=== PATIENT | female | born 2000 | race Caucasian/White ===

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

== ENCOUNTER → 2023-04-03 | Outpatient (CLI) | payer OTHER, SELFPAY ==
[2023-04-05 13:08] LABS: Chlamydia By Nucleic Acid AMP Negative (Negative); Gonococcus By Nucleic Acid AMP Negative (Negative)
[2023-04-08 18:35] LABS: HPV Reflexed? NOT INDICATED
== END | disposition home or self-care (01) ==
LOC: LABSPEC 11:22
PROVIDERS: Referring Provider Nurse Practitioner Women's Health; Visit Provider Nurse Practitioner Women's Health
DX: Z12.4 Encounter for screening for malignant neoplasm of cervix (principal); Z11.3 Encounter for screening for infections with a predominantly sexual mode of transmission
CPT/HCPCS: 87491; 87591; 88175; G0145

== ENCOUNTER 2023-07-01 11:54 | Emergency (ER) | payer OTHER, SELFPAY ==
[2023-07-01 11:54] VITALS: BP 122/81; PULSE 100; RESP 16; TEMP 36.2; O2SAT 100; BMI 21.7
[2023-07-01 12:29] LABS: Absolute Lymphocyte Count 1.47 X10^3/uL (0.83-4.51); Absolute Neutrophil Count 5.3 X10^3/uL (2.0-7.7); Basophil# 0.04 X10^3/uL; Basophil% 0.5 % (0-1); Eosinophil# 0.22 X10^3/uL; Eosinophils% 2.8 % (0-5); Hematocrit 44.2 % (37-47); Hemoglobin 14.6 g/dL (12.0-15.0); Lymphocyte # 1.47 X10^3/ul (0.83-4.51); Lymphocyte % 18.7 % (19-41); Mean Corpuscular Hgb 30.7 pg (27.0-32.0); Mean Corpuscular Volume 93.1 fL (81-99); Mean Platelet Vol. 11.2 fl (6.2-12.0); Monocyte# 0.86 X10^3/uL; Monocyte% 10.9 % (0-10); NRBC Flagged by Analyzer 0 % (0-5); Neutrophil # 5.26 X10^3/uL (2.7-7.7); Neutrophil % 66.7 % (47-70); Platelet Count 257 K/mm3 (150-450); RBC Distribution Width CV 12.7 % (11.6-14.6); Red Blood Count 4.75 M/mm3 (4.2-5.4); White Blood Count 7.9 K/mm3 (4.4-11.0)
[2023-07-01 12:41] LABS: Internal QC Validated? YES +Cl - CLEAR BKGD; Pregnancy, Serum, hCG Quali. NEGATIVE Negative
[2023-07-01 12:45] LABS: Anion Gap 8 (5-15); BUN 8 mg/dL (7-18); BUN/Creat Ratio 11.6 RATIO (10-20); Chloride 105 mmol/L (98-107); Creatinine, Serum 0.69 mg/dL (0.55-1.02); EST Glomerular Filtration Rate 113 mL/min (>60); Est Glom Filt Rate - Afr Amer 136 mL/min (>60); Estimated Creatinine Clearance 105.79 ml/min; Glucose 86 mg/dL (74-106); Potassium 4.2 mmol/L (3.5-5.1); Sodium Level 137 mmol/L (136-145)
--- NOTE | 2023-07-01 13:10 | EX.ED.DYSGE1 ---
HPI <CASEY Alicea - Last Filed: 07/01/23 15:56> History of Present Illness Chief Complaint: Abscess Narrative Narrative: Patient presenting today with concerns for a left-sided peritonsillar abscess. She has a history of this happening in April of this year and she had to be admitted to the hospital for I&D. She reports that she has had throat pain and intermittent chills since this Saturday. She saw her PCP this morning who encouraged her to come here for evaluation. She denies any chronic health conditions. She reports that she is able to eat and drink without difficulty. PFSH <CASEY Alicea - Last Filed: 07/01/23 15:56> [facility] Medical History Tonsillar abscess Home Medications levonorgestrel-ethinyl estradiol 0.1 mg-20 mcg tablet (Aviane) 1 tab PO QDAY active pills only for continuous cycling #84 tabs 04/03/23 [Rx Last Taken Unknown] amoxicillin 875 mg-potassium clavulanate 125 mg tablet 1 tab PO BID #20 tabs 07/01/23 [Rx Last Taken Unknown] amoxicillin 875 mg-potassium clavulanate 125 mg tablet 1 tab PO Q12H #20 tabs 07/01/23 [Rx Last Taken Unknown] Allergy/AdvReac Type Severity Reaction Status Date / Time minocycline Allergy Mild hives Verified 07/01/23 11:56 Family History Uncle Cancer Grandmother Breast cancer Surgical History H/O wisdom tooth extraction Social History household members: family housing: house Smoking Status: Never smoker alcohol intake: never substance use type: does not use caffeine: Yes what type of physical activity do you participate in: weight training and other details: softball, soccer frequency: daily seatbelt use: always additional social history: student - [employer] <CASEY Alicea - Last Filed: 07/01/23 15:56> ROS ED Constitutional Constitutional ED: Reports chills; Denies fever(s) ENT ENT ED: Reports sore throat Cardiovascular Cardiovascular: Denies chest pain Respiratory/Chest Respiratory/Chest: Denies cough or dyspnea Gastrointestinal Gastrointestinal: Denies abdominal pain, nausea or vomiting Musculoskeletal Musculoskeletal: Denies arthralgias or myalgias Integumentary Denies rash Neurologic Neurologic: Denies weakness EXAM <CASEY Alicea - Last Filed: 07/01/23 15:56> Physical Exam Const Vital Signs: 07/01/23 11:54 07/01/23 14:02 Temperature 97.1 F L Temperature Source Temporal Pulse Rate 100 68 Respiratory Rate 16 14 Blood Pressure 122/81 H Blood Pressure Mean 94 Pulse Ox 100 Oxygen Delivery Method Room Air Positive well nourished, well developed and no apparent distress General Appearance ED: well developed HEENT Reports normocephalic and head/scalp atraumatic HEENT Narrative: Left-sided soft palate swelling, uvula deviated towards the right, no trismus or drooling, tolerating secretions, no dysphonia Mouth ED: Yes moist mucous membranes normal Eyes PERRL and EOMs intact bilaterally Neck full ROM and supple Chest Wall inspection of chest normal Resp normal respiratory effort and clear to auscultation bilaterally Cardio regular rate and regular rhythm GI soft to palpation, non-tender, non-distended and no masses Back/Spine normal ROM and normal to inspection Extremity normal to inspection and full ROM Neuro oriented x3, CN's II-XII intact bilaterally, moves all extremities, no focal motor deficits and no sensory deficits noted Sensorium / Orientation: awake and alert Psych mental status grossly normal and thought process normal Skin no rashes or lesions noted and no wounds <Dr. Rip Vallejo MD - Last Filed: 07/01/23 16:51> Physical Exam Const Vital Signs: 07/01/23 11:54 07/01/23 14:02 Temperature 97.1 F L Temperature Source Temporal Pulse Rate 100 68 Respiratory Rate 16 14 Blood Pressure 122/81 H Blood Pressure Mean 94 Pulse Ox 100 Oxygen Delivery Method Room Air MDM <CASEY Alicea - Last Filed: 07/01/23 15:56> [facility] Narrative Medical decision making narrative: Presenting today with concerns for a peritonsillar abscess. She has had throat pain since Saturday and does have a history of peritonsillar abscess in April of this year. She does have left-sided soft palate swelling with uvular deviation towards the right. She will be given a dose of Unasyn. Labs are unremarkable. Abscess was drained by the attending ED physician. Patient tolerated procedure well. She will be given an ENT referral and is to follow-up in 2 days. She will be started on Augmentin and has been instructed to do salt water gargles. She will be given a school excuse. She will be discharged home in stable condition and her and mom are comfortable with plan. She has been given return instructions. Lab Data Attestation: I reviewed the patient's lab results. Labs: Laboratory Results - last 24 hr 07/01/23 12:05 WBC 7.9 RBC 4.75 Hgb 14.6 Hct 44.2 MCV 93.1 MCH 30.7 MCHC 33.0 RDW Std Deviation 44.0 H RDW Coeff of Ihsan 12.7 Plt Count 257 MPV 11.2 Immature Gran % (Auto) 0.400 Neut % (Auto) 66.7 Lymph % (Auto) 18.7 L Webster % (Auto) 10.9 H Eos % (Auto) 2.8 Baso % (Auto) 0.5 Absolute Neuts (auto) 5.3 Absolute Lymphs (auto) 1.47 Nucleated RBC % 0 Sodium 137 Potassium 4.2 Chloride 105 Carbon Dioxide 24.0 Anion Gap 8 BUN 8 Creatinine 0.69 Estim Creat Clear Calc 105.79 Est GFR (MDRD) Af Amer 136 Est GFR (MDRD) Non-Af 113 BUN/Creatinine Ratio 11.6 Glucose 86 Calcium 9.0 Serum , Qual NEGATIVE <Dr. Rip Vallejo MD - Last Filed: 07/01/23 16:51> [facility] Narrative Medical decision making narrative: Presenting today with concerns for a peritonsillar abscess. She has had throat pain since Saturday and does have a history of peritonsillar abscess in April of this year. She does have left-sided soft palate swelling with uvular deviation towards the right. She will be given a dose of Unasyn. Labs are unremarkable. Abscess was drained by the attending ED physician. Patient tolerated procedure well. She will be given an ENT referral and is to follow-up in 2 days. She will be started on Augmentin and has been instructed to do salt water gargles. She will be given a school excuse. She will be discharged home in stable condition and her and mom are comfortable with plan. She has been given return instructions. I have personally performed a face to face assessment of the patient and have reviewed the ROXANNE Note. I performed a substantive portion of the visit including all aspects of the following. My josé findings include: History is remarkable for recurrent peritonsillar abscess. She was sent in after she was seen by nurse practitioner. Patient has change in voice, hurts to swallow, she is able to open her mouth and close her mouth completely. She has no history medic fever, heart murmur, mitral valve prolapse or SBE. She denies rash. She is able to swallow liquids and solids. Exam is remarkable for hot potato voice. Patient has a left peritonsillar abscess. There is no deviation of the uvula. There is significant swelling. There is no drooling. Trachea is midline. There is no inspiratory stridor. Heart is regular. Rate is normal. There is no murmur, gallop or rub. Lungs are clear to auscultation. Medical Decision Making patient has a peritonsillar abscess. Patient was explained that this needs to be drained. She states it was drained 2 months ago. Other additions or changes: Procedure note: The area was anesthetized. Using 18-gauge needle the left peritonsillar abscess was drained. 1 cc of green purulent material was aspirated. Patient was discharged home with prescription for Augmentin and referred to ENT. Mother had questions regarding tonsillectomy etc. I informed her that those questions should be answered by the hearing instrument specialist. Lab Data Lab results narrative: CBC is normal. Electrolyte panel is normal. Pain is neck Labs: Laboratory Results - last 24 hr 07/01/23 12:05 WBC 7.9 RBC 4.75 Hgb 14.6 Hct 44.2 MCV 93.1 MCH 30.7 MCHC 33.0 RDW Std Deviation 44.0 H RDW Coeff of Ihsan 12.7 Plt Count 257 MPV 11.2 Immature Gran % (Auto) 0.400 Neut % (Auto) 66.7 Lymph % (Auto) 18.7 L Webster % (Auto) 10.9 H Eos % (Auto) 2.8 Baso % (Auto) 0.5 Absolute Neuts (auto) 5.3 Absolute Lymphs (auto) 1.47 Nucleated RBC % 0 Sodium 137 Potassium 4.2 Chloride 105 Carbon Dioxide 24.0 Anion Gap 8 BUN 8 Creatinine 0.69 Estim Creat Clear Calc 105.79 Est GFR (MDRD) Af Amer 136 Est GFR (MDRD) Non-Af 113 BUN/Creatinine Ratio 11.6 Glucose 86 Calcium 9.0 Serum , Qual NEGATIVE Procedures <Dr. Rip Vallejo MD - Last Filed: 07/01/23 16:51> Other Procedures Procedure(s): Aspiration left peritonsillar abscess by me. Documented in the attending note. Discharge Plan Triage Chief Complaint: Abscess ED Midlevel Provider: Jordyn Souza ED Provider: Rip Vallejo Dx/Rx/DC Orders Clinical Impression: Peritonsillar abscess Instructions: ED Peritonsillar Abscess Prescriptions: New amoxicillin-pot clavulanate 875-125 mg tablet 1 tab PO BID Qty: 20 0RF amoxicillin-pot clavulanate 875-125 mg tablet 1 tab PO Q12H Qty: 20 0RF No Action levonorgestrel-ethinyl estrad [Aviane] 0.1-20 mg-mcg tablet 1 tab PO QDAY Qty: 84 5RF Stand Alone Forms: ED Work / School Excuse Primary Care Provider: Annalisa Oseguera [employer] Referrals: Tolu Chamberlain MD [Med Staff - Active Staff] - 2 Days Activity Restrictions/Additional Instructions: Please follow-up with ENT in 2 days, return for any worsening of your symptoms, take antibiotics as prescribed, begin salt water gargles 3 times a day Disposition Disposition: Home, Self Care Discharge Date/Time: 07/01/23 14:28
[2023-07-01] MEDS: Ampicillin/Sulbactam 3 GM in 0.9% Normal Saline (100mL MB+) 100 ML IV (13:41)
[2023-07-01] MEDS: Tetracaine/Benzocaine/Butamben 1 APPLIC TOPICAL (13:47)
[2023-07-01 14:02] VITALS: PULSE 68; RESP 14
== END 2023-07-01 14:28 | disposition home or self-care (01) ==
PROVIDERS: Emergency Provider Emergency Medicine; PCP Nurse Practitioner Primary Care; Visit Provider Emergency Medicine
DX: J36 Peritonsillar abscess (principal)
CPT/HCPCS: 42700; 80048; 84703; 85025; 96365; 99283; A4216; J0295

== ENCOUNTER → 2023-07-24 | Outpatient (CLI) | payer OTHER, SELFPAY | END | disposition home or self-care (01) | LOC: LABSPEC 15:32 | PROVIDERS: PCP Nurse Practitioner Primary Care; Referring Provider Otolaryngology; Visit Provider Otolaryngology | DX: J03.90 Acute tonsillitis, unspecified (principal) | CPT/HCPCS: 87070; 87077 ==

== ENCOUNTER → 2023-09-03 | Outpatient (CLI) | payer OTHER, SELFPAY ==
--- NOTE | 2023-09-03 | TONS_PTH ---
PATHOLOGY RESULTS PATIENT: KENDELL KIM LOC: [facility] U#:[id number] AGE/SX: 23/ ROOM: RE09/03/[address]: Dr. Rajiv Horn MD : 2000 BED: DIS: 09/03/2023 SPEC #: [id number] RECD: 09/04/23 07:24 STATUS: ANTONIO MEGAN #: [id number] BRIAN: 09/03/23 00:[address]: Rajiv Horn DEPT: SURGICAL PATHOLOGY RECD BY: Domitila Billingsley ENTERED: 09/04/23 07:25 SP TYPE: TONSILS OTHR DR: Annalisa Oseguera NP [facility] Tissues: Tonsil, NOS Procedures: Surgery Specimen Level III HEADER OPERATION: Bilateral tonsillectomy PRE-OP DIAGNOSIS: Chronic tonsillitis, peritonsillar abscess TISSUE SUBMITTED: Bilateral tonsils, right tonsil pinned MICROSCOPIC DIAGNOSIS Right tonsil, tonsillectomy: Benign lymphoid follicular hyperplasia. Left tonsil, tonsillectomy: Benign lymphoid follicular hyperplasia. AM:macie 09/05/2023 MICROSCOPIC DESCRIPTION Slides are reviewed. GROSS DESCRIPTION Received is one container labeled with the patient's name and designated tonsils - pin on right are two tonsils that in aggregate weigh 12.2 gm. The right tonsil has a pin on it and measures 3.5 x 2.5 x 1.8 cm. The left tonsil measures 3.5 x 2.5 x 2.0 cm. Both tonsils are similar in appearance. The external surfaces are pink-khoury, smooth, glistening and somewhat lobulated. Focally they are hemorrhagic, granular and bear cautery artifact. Serial cross sections through the tonsils reveal normal tonsillar architecture. Sections are submitted in two cassettes as follows: 1 - right tonsil, 2 - left tonsil. / SJ:macie 09/04/2023 TC:5 CPT: 37060 x2
--- OUTSIDE RECORDS SUMMARY | 2023-09-03 17:27 | XMS RPT_ITS | CCD ---
Author Name Unknown Address [address] [place] [address] Organization [facility] Care Team Providers Care Lamp Inspector Name Role Phone Tania Jada Unavailable [phone] ManAlexi mckenna CMAa Unavailable Unavailable Unavailable Unavailable Tania OLIVA Jada Unavailable [facility] Rebecca Unavailable Unavailable [employer]-AC/DC REWINDER, [facility] Primary Care Physician Jef POULTRY HANGER, Araceli Unavailable ColonYari Unavailable Required, No Pcp Unavailable Unavailable Idania Clancy IV Unavailable Unavailable MD IDANIA CLANCY IV Attending Unavailable [employer]-AC/DC REWINDER, [facility] Primary Care Gerald MENDOSA MD, DR TORRES Attending Unavailabl e [employer]-AC/DC REWINDER, MIS Attending Gerald LINCOLN APRN-AC/DC REWINDER, [facility] Primary Care Gerald [employer]N [employer]AL-AC/DC REWINDER, [facility] Primary Care Nasiri chang [employer]MENTS [employer]INCIPAL-AC/DC REWINDER, OUMOU Attending Unavailabl e NANCYNS [employer]INCIPAL-AC/DC REWINDER, MIS Primary Care Unavai chang [facility] APRN-AC/DC REWINDER, BRIGIDA Llanos Attending Kareem [facility] APRN-JOHN, BRIGIDA Llanos Admitting Unavailmelissa ALAMO MD, ENZO Referring Unavailable JASMEET NAVARRETE, ENZO Consulting Unavailable HUBERT SPIVEY DO Consulting Unavailable LATONIA GARCIAAC/DC REWINDER, [facility] Primary Care Gerald MENDOSA MD, DR TORRES Attending Unavailmilton LINCOLN APRN-AC/DC REWINDER, [facility] Primary Care Gerald MENDOSA MD, DR TORRES Attending Unavailabl e Allergies Allergy Classification Reported Allergen(s) Allergy Type Date of Onset Reaction(s) Facility (8 sources) Minocycline; Translations: [Minocycline HCl *TETRACYCLINES* ] Drug Allergy Weal (disorder), Eruption of skin (disorder) [facility] Work Phone: Medications Current Medications Medication Drug Class(es) Dates Sig (Normalized) Sig (Original) acetaminophen 325 mg / HYDROcodone bitartrate 5 mg oral tablet (1 source) Opioid Agonist Start: 04-24-2023 End: 04-25-2023 [place] 325- 5 mg oral tablet Dose = 1 tab(s), Oral, QID, PRN Pain, scale 7-10, X 1 day(s), # 5 tab(s), 0 Refill(s), Pharmacy: [id number], Peritonsillar abscess, 160, cm, 04/22/23 17:18:00 EDT, Height, 55.7, kg, 04/22/23 17:18:00 EDT, Dosing Weight Start Date: 04/24/23 Stop Date: 04/25/23 Status: Ordered amoxicillin 120 mg/ml / clavulanate 8.58 mg/ml oral suspension (2 sources) Penicillin-class Antibacterial Start: 04-24-2023 End: 05-04-2023 take 7.5 mL by mouth twice daily amoxicillin-clavul anate 600 mg-42.9 mg/5 mL oral liquid 7.5 mL, Oral, BID, X 10 day(s), # 150 mL, 0 Refill(s), 05/04/23 9:52:00 AM EDT, Pharmacy: [facility], 160, cm, 04/22/23 17:18:00 EDT, Height, 55.7, kg, 04/22/23 17:18:00 EDT, Dosing Weight Start Date: 04/24/23 Stop Date: 05/04/23 Status: Ordered Problems Active Problems Problem Classification Problem Date Documented Date Episodic/Chronic Acute and chronic tonsillitis (13 sources) Peritonsillar abscess; Translations: [Acute tonsillitis] Onset: 04-19-2023 Episodic Past or Other Problems Problem Classification Problem Date Documented Da te Episodic/Chronic Other gastrointestinal disorders (2 sources) Functional diarrhea; Translations: [Functional diarrhea] Onset: 01-07-2023 Episodic Unclassified (14 sources) Unclassified (8 sources) Non-smoker Unclassified (8 sources) BMI 24.0-24.9, adult Unclassified (3 sources) Encntr for general adult medical exam w/o abnormal findings Unclassified (2 sources) Diarrhea, unspecified type Results Test Name Value Interpretation Reference Range Facil ity Vital Signs Date Time Vital Sign Value Performing Clinician Facility 04-24-2023 10:30-0400 Body temperature 97.88 [degF] BRIGIDA ARIZAER [employer]IPAL-AC/DC REWINDER [facility] 04-24-2023 10:30-0400 Diastolic Blood Pressure Non-Invasive 58 1 BRIGIDA ARIZAER [employer]INCIPAL-AC/DC REWINDER [facility] 04-24-2023 10:30-0400 Heart rate 73 /min BRIGIDAMelissa ARIZAER [employer]INCIPAL-AC/DC REWINDER [facility] 04-24-2023 10:30-0400 Reason For Taking VItal Signs BRIGIDA ARIZAER [employer] PRINCIPAL-AC/DC REWINDER [facility] 04-24-2023 10:30-0400 Respiratory rate 16 /min BRIGIDA ARIZAER [employer] PRINCIPAL-AC/DC REWINDER [facility] 04-24-2023 10:30-0400 Systolic Blood Pressure Non-Invasive 109 1 BRIGIDA CHI [employer]INCIPAL-AC/DC REWINDER [facility] 04-24-2023 06:19-0400 Body temperature 98.24 [degF] BRIGIDA ARIZAER [employer] PRINCIPAL-AC/DC REWINDER [facility] 04-24-2023 06:19-0400 Diastolic Blood Pressure Non-Invasive 57 1 BRIGIDA ANNITAER [employer] PRINCIPAL-AC/DC REWINDER [facility] 04-24-2023 06:19-0400 Heart rate 88 /min BRIGIDAMelissa ARIZAER [employer] PRINCIPAL-AC/DC REWINDER [facility] 04-24-2023 06:19-0400 Reason For Taking VItal Signs BRIGIDA ARIZAER [employer] PRINCIPAL-AC/DC REWINDER [facility] 04-24-2023 06:19-0400 Respiratory rate 16 /min BRIGIDA ANNITAER [employer] PRINCIPAL-AC/DC REWINDER [facility] 04-24-2023 06:19-0400 Systolic Blood Pressure Non-Invasive 90 1 BRIGIDA ARIZAER [employer] PRINCIPAL-AC/DC REWINDER [facility] 04-24-2023 04:22-0400 Body temperature 98.24 [degF] BRIGIDA ANNITAER [employer] PRINCIPAL-AC/DC REWINDER [facility] 04-24-2023 04:22-0400 Diastolic Blood Pressure Non-Invasive 61 1 BRIGIDAMelissa ARIZAER [employer] PRINCIPAL-AC/DC REWINDER [facility] 04-24-2023 04:22-0400 Heart rate 81 /min BRIGIDA ANNITAER [employer] PRINCIPAL-AC/DC REWINDER [facility] 04-24-2023 04:22-0400 Reason For Taking VItal Signs BRIGIDAMelissa ARIZAER [employer] PRINCIPAL-AC/DC REWINDER [facility] 04-24-2023 04:22-0400 Respiratory rate 16 /min BRIGIDA KAPPER [employer] PRINCIPAL-AC/DC REWINDER [facility] 04-24-2023 04:22-0400 Systolic Blood Pressure Non-Invasive 110 1 BRIGIDA KAPPER [employer] PRINCIPAL-AC/DC REWINDER [facility] 04-24-2023 00:16-0400 Heart rate 77 /min BRIGIDA KAPPER [employer] PRINCIPAL-AC/DC REWINDER [facility] 04-23-2023 16:28-0400 Heart rate 77 /min BRIGIDA KAPPER [employer] PRINCIPAL-AC/DC REWINDER [facility] 04-23-2023 04:03-0400 Heart rate 75 /min BRIGIDA [employer]I [employer]IPAL-AC/DC REWINDER [facility] 04-22-2023 17:18-0400 Body height 160 cm BRIGIDA [employer]I [employer]IPAL-AC/DC REWINDER [facility] 04-22-2023 17:18-0400 Body weight 55.7 kg BRIGIDA [employer]I [employer]INCIPAL-AC/DC REWINDER [facility] 04-22-2023 17:18-0400 Body weight 21.76 kg/m2 BRIGIDA [employer]I [employer]INCIPAL-AC/DC REWINDER [facility] 04-22-2023 12:21-0400 Body weight 55.7 kg BRIGIDA [employer]I [employer] PRINCIPAL-AC/DC REWINDER [facility] 04-19-2023 17:43-0400 Body height 160 cm No Pcp Required [facility] 04-19-2023 17:43-0400 Body temperature 98.6 [degF] No Pcp Required [facility] 04-19-2023 17:43-0400 Body weight 56.5 kg No Pcp Required [facility] 04-19-2023 17:43-0400 Diastolic blood pressure 73 mm[Hg] No Pcp Required [facility] 04-19-2023 17:43-0400 Heart rate 106 /min No Pcp Required [facility] 04-19-2023 17:43-0400 Respiratory rate 16 /min [facility]23 17:43-0400 SaO2% (BldA) [Mass fraction] 97 % [facility] 17:43-0400 Systolic blood pressure 108 mm[Hg] [facility] 04-19-2023 09:20-0400 Body temperature 97.34 [degF] Araceli Fuchs [facility] 04-19-2023 09:20-0400 Diastolic blood pressure 86 mm[Hg] Araceli Fuchs POULTRY HANGER [facility] 04-19-2023 09:20-0400 Heart rate 109 /min Araceli Fuchs P[employer]LTRY HANGER [facility] 04-19-2023 09:20-0400 Respiratory rate 16 /min Araceli Fuchs P[employer] HANGER [facility] 04-19-2023 09:20-0400 SaO2% (BldA) [Mass fraction] 99 % Araceli Fuchs POULTRY HANGER [facility] 04-19-2023 09:20-0400 Systolic blood pressure 110 mm[Hg] Araceli Fuchs POULTRY HANGER [facility] 04-05-2022 13:53-0400 Body height 160.02 cm Rebecca Bullock [facility] Work Phone: 04-05-2022 13:53-0400 Body mass index (BMI) [Ratio] 24.27 kg/m2 Rebecca Bullock [facility] Work Phone: 04-05-2022 13:53-0400 Body surface area Derived from formula 1.65 m2 Rebecca Bullock [facility]; [facility] Work Phone: 04-05-2022 13:53-0400 Body temperature 97.3 [degF] Rebecca Bullock [facility] Comprehensiv e Internal Medicine; [facility] Work Phone: Encounters Encounter Date Encounter Type Care Provider Facility Start: 05-30-2023 End: 06-04-2023 ambulatory MIS [employer]-AC/DC REWINDER Facility:B Start: 04-22-2023 End: 04-24-2023 ambulatory MIS [employer]IA [employer]-AC/DC REWINDER Facility:B Start: 04-22-2023 End: 04-24-2023 Observation BRIGIDA Llanos ARTI [employer] PRINCIPAL-AC/DC REWINDER [facility] Start: 04-19-2023 End: 04-19-2023 Emergency department patient visit Idania Clancy IV [facility] Start: 04-19-2023 Araceli Fuchs P[employer] HANGER [facility] Start: 01-16-2023 End: 01-17-2023 ambulatory MIS SEFFENS [employer]IP[employer]-AC/DC REWINDER Facility:B Start: 01-07-2023 End: 01-12-2023 ambulatory MIS SEFFENS [employer]IPAL-AC/DC REWINDER Facility:B Start: 01-07-2023 ambulatory MIS SEFFEN S [employer] PRINCIPAL-AC/DC REWINDER Facility:B Start: 10-27-2022 End: 10-28-2022 ambulatory MIS SEFFENS [employer]IPAL-AC/DC REWINDER Facility:B Start: 10-27-2022 End: 10-27-2022 Patient encounter procedure MIS SEFFENS [employer]IPAL-AC/DC REWINDER [facility] Start: 04-06-2022 End: 04-06-2022 Phone Encounter Jada Tania DO Work Phone: [facility] Start: 04-05-2022 End: 04-05-2022 Office outpatient visit 10 minutes Jada Tania DO Work Phone: [facility] Start: 04-07-2021 End: 04-07-2021 Office outpatient visit 10 minutes Jada Tania DO Work Phone: [facility] Start: 03-31-2021 End: 03-31-2021 Initial preventive medicine new pt age 18-39yrs Jada Tania DO Work Phone: [facility] Start: 03-31-2021 End: 03-31-2021 Patient encounter status Jada Tania DO Work Phone: [facility] Patient encounter status Cindy Benson [facility] Work Phone: Procedures Date Procedure Procedure Detail Performing Clinician Start: 08-26-2016 Extraction of wisdom tooth MIS LINCOLN [employer]-AC/DC REWINDER Plan of Treatment Date Care Activity Detail Author Start: 04-06-2022 Lipid panel LIPID PANEL (09335) [facility] Work Phone: Start: 04-05-2022 Comprehensive metabolic panel METABOLIC PANEL, COMPREHENSIVE (48373) [facility]; [facility] Work Phone: Start: 04-05-2022 Blood count complete auto&auto difrntl wbc CBC W/AUTO DIFF WBC (42690) [facility]; [facility] Work Phone: Start: 04-05-2022 Iaad ia cryptosporidium CRYPTOSPORIDUM/GIARDI, INFCT ANTIGEN ([id number]) [facility]; [facility] Work Phone: Start: 04-05-2022 Ova&parasites direct smears concentration & id OVA & PARASITE DIR SMEAR (58032) [facility]; [facility] Work Phone: Start: 04-05-2022 Blood occult peroxidase actv qual feces 1 deter OCCULT BLOOD FECES SCREEN (94270) [facility]; [facility] Work Phone: Start: 04-05-2022 Leukocyte assmt fecal qual/semiquantitative LEUKOCYTE COUNT, FECAL (15729) [facility]; [facility] Work Phone: Start: 04-05-2022 Culture bacterial any source anaerobic iso&id C-DIFFICILE, STOOL (71085) [facility]; [facility] Work Phone: Start: 04-05-2022 Cul bact stool aerobic isol salmonella&shigell LIANET CULTURE-STOOL ([id number]) [facility]; [facility] Work Phone: Start: 04-05-2022 Lipid panel LIPID PANEL (76598) [facility] Work Phone: Start: 04-05-2022 Procedure Education Eprescribed prescriptions (G8553) [facility]; [facility] Work Phone: Start: 04-05-2022 Provider Instructions for Treatment [facility]; [facility] Work Phone: Start: 04-07-2021 Procedure Education Eprescribed prescriptions (G8553) [facility]; [facility] Work Phone: Start: 03-31-2021 Procedure Education Eprescribed prescriptions (G8553) [facility]; [facility] Work Phone: Immunizations Immunization Date Immunization Notes Care Provider [facility] 08-14-2022 Human Papillomavirus Quadval MIS [employer]-AC/DC REWINDER [facility] 03-27-2022 Human Papillomavirus Quadval MIS [employer]-AC/DC REWINDER [facility] 07-24-2021 SARS-CoV-2 mRNA (tozinameran) vaccine MIS [employer]-AC/DC REWINDER [facility] 03-24-2020 hepatitis A vaccine, pediatric dosage, unspecified formulation MIS [employer]AL-AC/DC REWINDER [facility] 03-24-2020 meningococcal B vacc ine, recombinant, OMV, adjuvanted MIS [employer]IPAL-AC/DC REWINDER [facility] 04-08-2019 meningococcal polysaccharide (groups A, C, Y and W-135) diphtheria toxoid conjugate vaccine (MCV4P) MIS [employer]IPAL-AC/DC REWINDER [facility] 03-31-2014 meningococcal polysaccharide (groups A, C, Y and W-135) diphtheria toxoid conjugate vaccine (MCV4P) MIS [employer]IPAL-AC/DC REWINDER [facility] 03-31-2014 tetanus toxoid, redu any diphtheria toxoid, and acellular pertussis vaccine, adsorbed MIS [employer]IPAL-AC/DC REWINDER [facility] 06-13-2009 influenza virus vacc ine, unspecified formulation MIS [employer]IPAL-AC/DC REWINDER [facility] 05-21-2006 varicella virus vaccine JORDON [employer]-AC/DC REWINDER [facility] 05-10-2005 diphtheria, tetanus toxoids and acellular pertussis vaccine, unspecified formulation MIS [employer]IPAL-AC/DC REWINDER [facility] 05-10-2005 measles/mumps/rubell a virus vaccine MIS [employer]IPAL-AC/DC REWINDER [facility] 05-10-2005 poliovirus vaccine, inactivated MIS [employer]IPAL-AC/DC REWINDER [facility] 06-16-2003 diphtheria, tetanus toxoids and acellular pertussis vaccine, unspecified formulation MIS [employer]IPAL-AC/DC REWINDER [facility] 06-16-2003 haemophilus influenz ae type b vaccine, PRP-T conjugate MIS [employer]IPAL-AC/DC REWINDER [facility] 06-16-2003 varicella virus vaccine JORDON [employer]IPAL-AC/DC REWINDER [facility] 05-06-2002 measles/mumps/rubell a virus vaccine MIS [employer]IPAL-AC/DC REWINDER [facility] 03-12-2002 hepatitis B pediatri c vaccine MIS [employer]AL-AC/DC REWINDER [facility] 03-12-2002 poliovirus vaccine, inactivated MIS SEFFENS [employer]IPAL-AC/DC REWINDER [facility] 2001 diphtheria, tetanus toxoids and acellular pertussis vaccine, unspecified formulation MIS [employer]FFENS [employer]IPAL-AC/DC REWINDER [facility] 2001 haemophilus influenz ae type b vaccine, PRP-T conjugate MIS [employer]IPAL-AC/DC REWINDER [facility] 2001 diphtheria, tetanus toxoids and acellular pertussis vaccine, unspecified formulation MIS [employer]IPAL-AC/DC REWINDER [facility] 2001 haemophilus influenz ae type b vaccine, PRP-T conjugate MIS [employer]IPAL-AC/DC REWINDER [facility] 2001 poliovirus vaccine, inactivated MIS [employer]IPAL-AC/DC REWINDER [facility] 2001 haemophilus influenz ae type b conjugate and Hepatitis B vaccine MIS [employer]IPAL-AC/DC REWINDER [facility] 2001 diphtheria, tetanus toxoids and acellular pertussis vaccine, unspecified formulation MIS [employer]IPAL-AC/DC REWINDER [facility] 2001 poliovirus vaccine, inactivated MIS [employer]IPAL-AC/DC REWINDER [facility] 2001 hepatitis B pediatri c vaccine MIS [employer]ENS [employer]INCIPAL-AC/DC REWINDER [facility] Payers Date Payer Category Payer Unknown [id number] 2001 Unknown [id number] 2001 Unknown [id number] [id number] [id number] 2001 Unknown [id number] [id number] [id number] 2001 Unknown [id number] [id number] [id number] 2001 Unknown [id number] 2.16.8 [id number] 2001 Unknown [id number] 2.16.8 [id number] 2001 Unknown [id number] [id number] [id number] Unknown Social History Date Type Detail Facility Start: 10-26-2022 Tobacco smoking status Never smoked tobacco (finding) [facility] Physicians [facility] Sex Assigned At Sex [facility] Tobacco smoking consumption unknown [facility] Functional Status Date Assessment Result Facility 04-24-2023 Functional Status bilateral knee high removed/off [facility] 04-24-2023 Functional Status Door open, Room check performed [facility] 04-24-2023 Functional Status [facility] 04-24-2023 Functional Status [facility] 04-23-2023 Functional Status Nurse Safety C tejas q2hrs Performed 7pm-7am [facility] 04-23-2023 Functional Status [facility] 04-23-2023 Functional Status Positioning Repositions self [facility] 04-23-2023 Functional Status [facility] 04-23-2023 Functional Status Driving, workforce management manager, Home management, Laundry, Personal ADL, Schoolwork [facility] 04-23-2023 [facility] Status [facility] 04-22-2023 Functional Status [facility] 04-22-2023 Functional Status Sensory Deficits None A [facility] Mental Status Date Assessment Result Facility 04-24-2023 Mental Status Oriented x 4 [facility] 04-24-2023 Mental Status [facility] 04-23-2023 Mental Status [facility] Clinical Notes 10-27-2022 to 06-01-2023 Note Date & Type Note Facility 06-01-2023 Note . MICRO - Microbiology PROCEDURE: Urine Culture [*1] SOURCE: Urine, Clean Catch BODY SITE: COLLECTED DATE/TIME: 05/30/2023 13:27 EDT RECEIVED DATE/TIME: 05/30/2023 22:06 EDT START DATE/TIME: 05/30/2023 22:06 EDT FREE TEXT SOURCE: FINAL REPORTS Final Report [] Verified Date/Time/Personnel: 06/01/2023 08:41 EDT 50,000 - 100,000 cfu/ml Escherichia coli PRELIMINARY REPORTS Preliminary Report [] Verified Date/Time/Personnel: 05/31/2023 10:17 EDT 50,000 - 100,000 cfu/ml Escherichia coli GEMINI to follow SUSCEPTIBILITY RESULTS Escherichia coli Antibiotic GEMINI Dilut GEMINI Inter Ampicillin <=8 Susceptible Ampicillin/ <=4/2 Susceptible Sulbactam Aztreonam 16 Intermediate Cefazolin <=2 Susceptible Ciprofloxacin <=0.25 Susceptible Ertapenem <=0.5 Susceptible Gentamicin <=2 Susceptible Imipenem <=1 Susceptible Levofloxacin <=0.5 Susceptible Meropenem <=1 Susceptible Minocycline <=4 Susceptible Nitrofurantoin <=32 Susceptible Trimethoprim/ <=0.5/9.5 Susceptible Sulfa Performing Locations *1: This test was performed at: [facility], [address] [place] [address], [id number] , [facility] ([place]) 04-24-2023 Hospital Discharge instructions Patient Education 04/24/2023 08:13:18 Peritonsillar Abscess Peritonsillar Abscess A peritonsillar abscess is a collection of pus in the back of the throat, behind the tonsils. It usually occurs when an infection of the throat or tonsils (tonsillitis) spreads into the tissues around the tonsils. What are the causes? The infection that leads to a peritonsillar abscess is usually caused by streptococcal bacteria. What increases the risk? You are more likely to develop this condition if: You have recently been diagnosed with an infection in your mouth or throat. You smoke. You have gum disease or gingivitis (periodontal disease). What are the signs or symptoms? Symptoms of this condition include: A sore throat, often with pain on just one side. Swollen, tender glands (lymph nodes) in the neck. Difficulty swallowing. Difficulty opening your mouth. Fever. Chills. Drooling because of difficulty swallowing saliva. Headache. Changes in how your voice sounds. Bad breath. How is this diagnosed? This condition may be diagnosed based on: Your symptoms and medical history. A physical exam. Imaging tests, such as ultrasound or CT scan. Testing a pus sample from the abscess. Your health care provider may collect a pus sample by swabbing the back of your throat or by removing some pus with a syringe and needle (needle aspiration). How is this treated? Treatment usually involves draining the pus from the abscess. This may be done through needle aspiration or by making an incision in the abscess and draining the fluid. You will also likely need to take antibiotic medicine. Follow these instructions at home: Medicines Take qakp-zvn-xwnyuct and prescription medicines only as told by your health care provider. If you were prescribed an antibiotic, take it as told by your health care provider. Do not stop taking the antibiotic even if your condition improves. Eating and drinking Drink enough fluid to keep your urine pale yellow. While your throat is sore, try only drinking liquids or eating only soft-textured foods such as yogurt and ice cream. General instructions Rest as much as possible and get plenty of sleep. Return to your normal activities as told by your health care provider. Ask your health care provider what activities are safe for you. If your abscess was drained, gargle with a salt-water mixture 3 4 times a day or as needed. To make a salt-water mixture, completely dissolve 1 tsp of salt in 1 cup of warm water. Do not swallow this mixture. Do not use any products that contain nicotine or tobacco, such as cigarettes and e-cigarettes. If you need help quitting, ask your health care provider. Keep all follow-up visits as told by your health care provider. This is important. Contact a health care provider if you have: More pain, swelling, redness, or pus in your throat. A headache. Lack of energy (lethargy). A general feeling of illness (malaise). A fever. Dizziness. Trouble swallowing. Trouble eating. Signs of dehydration, such as: ?Light-headedness when standing. ?Urinating less than usual. ?A fast heart rate. ?Dry mouth. Get help right away if you: Have trouble talking. Have trouble breathing, or it is easier for you to breathe when you lean forward. Cough up blood or vomit blood. Have severe throat pain that does not get better with medicine. Summary A peritonsillar abscess is a collection of pus in the back of the throat. It usually occurs when an infection of the throat or tonsils spreads. Symptoms include a sore throat, difficulty swallowing, fever, chills, and occasional drooling. This condition is treated by draining the abscess and taking antibiotic medicine. Call your health care provider if you have trouble swallowing or eating after treatment. Get help right away if you vomit blood or cough up blood after you receive treatment. This information is not intended to replace advice given to you by your health care provider. Make sure you discuss any questions you have with your health care provider. Document Released: 08/12/2006 Document Revised: 07/25/2018 Document Reviewed: 06/26/2018 [employer] Patient Education 2020 [employer] Follow Up Care 04/22/2023 12:19:38 With:MIS LINCOLN APRN-AC/DC REWINDER Address: [address] [facility] [place] [phone] When:5 to 7 days Comments:Please call to schedule your post-hospital follow-up appointment. With:HUBERT SPIVEY DO Address: [address] [place] [address] [address] [place] [address]- [phone] When: Unknown Comments:This is the ENT doctor who saw you in the hospital. [facility] 04-24-2023 Note Discharge Instructions Thank you for allowing [facility] to assist you with your healthcare needs. The following is important discharge information regarding your hospital visit. Your Care Team Brigida Spivey Your Diagnosis IBS (irritable bowel syndrome) Peritonsillar abscess What to do next Instructions From Your Doctor You were admitted due to a peritonsillar abscess on the left. We consulted Dr. Spivey, ENT, to evaluate you and he felt that there was no fluid to drain. He recommended continuing IV antibiotics and IV steroids for 2 full days and Augmentin on discharge. Because the Augmentin tablet is large, we will send in a prescription for liquid Augmentin for the remaining doses. We will also send in a prescription for a dexamethasone taper for a few more days. Dr. Spivey stated that you do not have to follow-up with him in his office unless you are continuing to have issues. He gave you a card if you need to call and his phone number should be on your discharge papers also. Please follow-up with your PCP in the next week or so to make sure you are improving. If you have any difficulty breathing or swallowing, please return to the ED. Follow Up Appointments Follow Up with MIS LINCOLN When Within 5 to 7 days Why: Please call to schedule your post-hospital follow-up appointment. Where: [address] [facility] [place] [phone] Follow Up with HUBERT SPIVEY DO When Why: This is the ENT doctor who saw you in the hospital. Where: [address] [facility] [address] [place] [address]- [phone] The Following Activity and Diet Have Been Ordered for You Discharge Activity - Ordered -- Resume your pre-hospitalization activity, 04/24/23 9:57:00 EDT Discharge Diet - Ordered -- No changes were made to your diet during your hospital stay. Please resume your pre hospitalization diet on discharge., 04/24/23 9:57:00 EDT The Following Treatments Have Been Ordered for You Discharge Labs No qualifying data available. Discharge Radiology No qualifying data available. Other Therapies No qualifying data available. Post Acute Orders No qualifying data available. Someone Will Contact You Regarding These Home Health Referrals No home referrals have been ordered for you. No one will call you. Allergies minocycline (Hives, Rash) Medications Please ask your primary doctor or pharmacist before taking any other medication not listed, including over the counter drugs, herbal medications, vitamins and or supplements as they may interact with your home medications. What How Much When Why Instructions Last Dose New acetaminophen-hydrocodone ([place] 325- 5 mg oral tablet) 1 tab(s) by mouth Four (4) times a day as needed for Pain, scale 7-10 Peritonsillar abscess Duration: 1 Days Pickup at [facility] 181104/23/23 at 3:30pm New dexAMETHasone (dexAMETHasone 4 mg oral tablet) 1 tab(s) by mouth Once a day Duration: 3 Days Pickup at [facility] 181104/24/23 at 0920am Changed amoxicillin-clavulanate (amoxicillin-clavulanate 600 mg-42.9 mg/ 5 mL oral liquid) 7.5 Milliliter by mouth Two (2) times a day Duration: 10 Days Pickup at [facility] [address] start today Unchanged ethinyl estradiol-levonorgestrel (Aviane 100 mcg-20 mcg oral tablet) 1 tab(s) by mouth Every day none today Pharmacy Information [facility] [address]: [address] [place], [place] [phone] Please take this list to your next doctor s visit. Bring all medications you take, including over the counter medications, herbals and other supplements with you to your doctor s visit. Patients and families are reminded to discard old lists and to update any records with all medication providers or retail pharmacies. Education Materials Peritonsillar Abscess A peritonsillar abscess is a collection of pus in the back of the throat, behind the tonsils. It usually occurs when an infection of the throat or tonsils (tonsillitis) spreads into the tissues around the tonsils. What are the causes? The infection that leads to a peritonsillar abscess is usually caused by streptococcal bacteria. What increases the risk? You are more likely to develop this condition if: You have recently been diagnosed with an infection in your mouth or throat. You smoke. You have gum disease or gingivitis (periodontal disease). What are the signs or symptoms? Symptoms of this condition include: A sore throat, often with pain on just one side. Swollen, tender glands (lymph nodes) in the neck. Difficulty swallowing. Difficulty opening your mouth. Fever. Chills. Drooling because of difficulty swallowing saliva. Headache. Changes in how your voice sounds. Bad breath. How is this diagnosed? This condition may be diagnosed based on: Your symptoms and medical history. A physical exam. Imaging tests, such as ultrasound or CT scan. Testing a pus sample from the abscess. Your health care provider may collect a pus sample by swabbing the back of your throat or by removing some pus with a syringe and needle (needle aspiration). How is this treated? Treatment usually involves draining the pus from the abscess. This may be done through needle aspiration or by making an incision in the abscess and draining the fluid. You will also likely need to take antibiotic medicine. Follow these instructions at home: Medicines Take [id number] and prescription medicines only as told by your health care provider. If you were prescribed an antibiotic, take it as told by your health care provider. Do not stop taking the antibiotic even if your condition improves. Eating and drinking Drink enough fluid to keep your urine pale yellow. While your throat is sore, try only drinking liquids or eating only soft-textured foods such as yogurt and ice cream. General instructions Rest as much as possible and get plenty of sleep. Return to your normal activities as told by your health care provider. Ask your health care provider what activities are safe for you. If your abscess was drained, gargle with a salt-water mixture 3 4 times a day or as needed. To make a salt-water mixture, completely dissolve 1 tsp of salt in 1 cup of warm water. Do not swallow this mixture. Do not use any products that contain nicotine or tobacco, such as cigarettes and e-cigarettes. If you need help quitting, ask your health care provider. Keep all follow-up visits as told by your health care provider. This is important. Contact a health care provider if you have: More pain, swelling, redness, or pus in your throat. A headache. Lack of energy (lethargy). A general feeling of illness (malaise). A fever. Dizziness. Trouble swallowing. Trouble eating. Signs of dehydration, such as: ? Light-headedness when standing. ? Urinating less than usual. ? A fast heart rate. ? Dry mouth. Get help right away if you: Have trouble talking. Have trouble breathing, or it is easier for you to breathe when you lean forward. Cough up blood or vomit blood. Have severe throat pain that does not get better with medicine. Summary A peritonsillar abscess is a collection of pus in the back of the throat. It usually occurs when an infection of the throat or tonsils spreads. Symptoms include a sore throat, difficulty swallowing, fever, chills, and occasional drooling. This condition is treated by draining the abscess and taking antibiotic medicine. Call your health care provider if you have trouble swallowing or eating after treatment. Get help right away if you vomit blood or cough up blood after you receive treatment. This information is not intended to replace advice given to you by your health care provider. Make sure you discuss any questions you have with your health care provider. Document Released: 08/12/2006 Document Revised: 07/25/2018 Document Reviewed: 06/26/2018 [employer] Patient Education 2020 [employer]. Additional Information VACCINATE! IT SAVES LIVES! Members of the community who have not yet received the COVID-19 vaccine and would like to receive it can visit one of [facility] vaccine clinics. There are many vaccine clinic locations within the [facility]. For locations and available times, please visit https://gettheshot.coronavirus.o hio.gov/. It is important to note that some COVID mobile vaccine clinics are held outdoors and may be canceled in rainy or stormy conditions. To learn more about pediatric vaccinations (ages 5-11), we invite you to visit the [facility] webpage. [email or web address]/p [email or web address]-[email or web address].[email or web address] To learn more about the COVID-19 vaccine, we invite you to visit the CDC website for a list of frequently asked questions.https://www.cdc.gov/co ronavirus/2019-ncov/vaccines/faq .html [facility] Patient Portal Access Instructions: Stay connected with your healthcare team and access your personal medical information anytime with the [facility] Patient Portal. Please follow the directions below to create your [facility] account: 1.Access the email account you provided upon registration to the hospital/physician office.2.Look for an invitation email from [facility].3.Open the email and access the invitation link: Accept Invitation to [facility].4.Fill in the required campoverde to create your account. To access your account, visit [email or web address]. Click the blue button labeled Access Patient Portal and then log in with the username and password that you created in the steps above. You will be able to view your test results, lab results, a summary of your visits, upcoming appointments and more. There is also a convenient messaging option where you can send secure messages to your provider. In addition, you will have the ability to download any documents or summaries to your computer and/or send the information securely to a physician. Remember that your healthcare information is confidential, so carefully consider who you will allow to register on the [facility] Patient Portal for access to your information. You can also access the [facility] on the [place] [facility]acho. Simply click on Patient Portal and then log into your account. If you would like to receive a full copy of your medical records, please contact the [facility] Medical Records Department by calling [phone], Saturday through Saturday between 8 a.m. and 4:30 p.m. HOW TO SAFELY DISPOSE OF PRESCRIPTION MEDICATIONS Please use one of the following methods to safely dispose of your unused medications. 1.Use a drug disposal kit: the drug disposal pouch allows you to safely discard your old and unused drugs. Ask your nurse to give you one when you are discharged.2.Visit a local take-back location: Many local pharmacies and police departments have programs that collect old and unwanted prescription drugs. Call your local pharmacy or go to http://bit.Autoniq/8N3Ma4g to find one close to you.3.Make use of household items: Use cat litter or old coffee grounds to dispose medications if other options are not available. Mix your drugs with these household products, seal them in an airtight container and throw it into the garbage. Call [facility]: [phone] to be sure your drugs can be disposed of in this way. Some medicines may require a different approach.4.Never flush your medications down the toilet. IF YOU HAVE BEEN PRESCRIBED AN OPIOID FOR PAIN If you have been prescribed an opioid (such as hydrocodone, oxycodone or morphine), it is critical to understand the possible side effects and risks of opioid pain medications. Even when taken as directed, opioids can have several side effects including: Tolerance, meaning you might need to take more of a medication for the same pain relief. Nausea, vomiting and/or constipation. Sleepiness, dizziness, dry mouth, confusion, depression or itching. Physical dependence, meaning you have withdrawal symptoms when a medication is stopped, can develop within a few days. KNOW YOUR RESPONSIBILITIES It is important to know exactly how much and how often to take the opioid pain medications you are prescribed. Never take opioids in higher amounts or more often than prescribed. Do not combine opioids with alcohol or other drugs that cause drowsiness, such as benzodiazepines, also known as benzos, including diazepam and alprazolam, muscle relaxants or sleep aids. Never sell or share prescription opioids. This is illegal. Store opioids in a secure place and out of reach of others (including children, family, friends and visitors). The last page of this document has been signed and retained as a CHART COPY. Signatures Patient Education Materials Peritonsillar Abscess Medication Leaflets My discharge plan and instructions have been reviewed and explained to me and I,KENDELL KIM S understand my current condition and have read and understand these discharge instructions. I have received a written copy of the plan/instructions. If I have questions, I am aware that I should contact my doctor. Patient/Billet Shearer Signature: Date/Time: Relationship to Patient: Witness Name/Signature: Date/Time: [facility] 04-23-2023 Note Date of Service 04/22/2023 Chief Complaint pt c/o sorethroat, over past week. She has been seen at 2 different stat cares and an ER placed on Amoxicillen. Pt has been tested for strep and mono both negative results. History of Present Illness Patient is a 22-year-old female, who follows with Mis [facility] JOHN with no significant past medical history, presents to [facility] emergency department with the chief complaint of sore throat. Patient states that she developed a sore throat a week ago Saturday. On Saturday last week, she was seen in an urgent care and a strep test was doen. It was negative so she was discharged home with [id number] recommendations. She presented again a few days later to the urgent care and was sent to the ED for concern of an abscess. She was given an oral steroid in the ER and then discharged home on amoxicillin. She has had difficulty swallowing the amoxicillin so has been crushing it in order to take it. Patient states she has been drooling a lot and is unable to open her mouth very far. She saw her PCP today who gave her decadron and sent her back to the ED for a CT neck. Patient reports intermittent fever and persistent hoarseness. She denies chills, cough, shortness of breath, chest pain, abdominal pain, nausea or dysuria. In the emergency department, CT soft tissue neck revealed left peritonsillar abscess with localized mass effect as described. No significant narrowing of the airway is present. Mild left-sided retropharyngeal edema. CBC and BMP unremarkable. Patient was administered 4 mg morphine IV, 10 mg dexamethasone IV and 3 grams Unasyn IV in the ED. The case was discussed with Dr. Hubert Spivey ENT, who recommended admission, unasyn and decadron. He will see her this evening on consult. The case was discussed with the ED physician who recommended admission for IV antibiotics and observation. Patient will be transferred to medical surgical unit for further evaluation and treatment. We will continue Unasyn 3 grams IV q6 hours. We will continue dexamethasone 4 mg IV q6 hours. We will consult Dr. Spivey ENT, for further recommendation. We will continue PO and IV pain medication and antiemetics. Repeat CBC and BMP in the am. Review of Systems Review of Systems: Reviewed in detail, including general health, HEENT, cardiovascular, respiratory, gastrointestinal, genitourinary, endocrine, musculoskeletal, neurologic, vascular, skin, and psychiatric. All are negative except for those listed in the History of Present Illness. Physical Exam Vitals and Measurements T: 36.7 C (Oral) HR: 104 RR: 14 BP: 122/85 SpO2: 97% WT: 55.7 kg Weight Dosing Weight: 55.7 kg (04/22/23) General: No acute distress. Patient is alert and appropriate. Skin: No rash. Skin is warm, dry and intact. HEENT: Head is normocephalic, atraumatic. Pupils are equal, round and reactive. Neck: Supple. Lymphadenopathy noted in left neck. Lungs: Bilaterally clear but diminished without crepitation or wheeze. Unlabored. Heart: Heart is regular rhythm, S1, S2. No murmurs, gallops or rubs. Abdomen: Abdomen is soft, nontender. Bowels sounds present in all quadrants. Extremities: No clubbing, cyanosis, or edema. Peripheral pulses palpable. No calf tenderness. Neurological: Patient is awake and alert to person, place and time. Following simple commands, moving all extremities. Lab Results 04/22 12:51 WBC: 8.7 Hgb: 13.0 Hct: 38.9 Platelet: 277 Neutrophil %: 59.1 Glucose Level: 100 Sodium Level: 139 Potassium Level: 3.8 BUN: 8 Creatinine Lvl (s): 0.73 Assessment/Plan 1. Peritonsillar abscess Acute, new onset *Consult placed to Dr. Spivey, ENT, for recommendation. *Continue Unasyn 3 grams IV q6 hours. *Continue dexamethasone 4 mg IV q6 hours. *Continue IV and PO pain medication and antiemetics. *Continue diet as tolerated. *Repeat CBC and BMP in the am. 2. IBS (irritable bowel syndrome) Chronic *Continue current home medications. DVT prophylaxis with SCDs, ambulation. Code status: Full Code. Labs, diagnostic test and progress notes reviewed as noted in HPI. Plan of care discussed with patient. All questions answered. Patient verbalizes understanding and is agreeable with plan of care. This case was discussed with collaborating physician, Dr. Enzo Alamo. 55 minutes spent reviewing past diagnostic tests, reviewing lab results, vital sign trends, medical history, reviewing medications and ordering home medications, examining patient, collaborating with physician, and documenting in chart. Problem List/Past Medical History Ongoing Chronic diarrhea Hyperlipidemia IBS (irritable bowel syndrome) Soft palate edema Tonsillitis Unintentional weight loss Historical No qualifying data Procedure/Surgical History Extraction of wisdom tooth: 2017 Medications Home Medications (2) Active amoxicillin-clavulanate 875 mg-125 mg oral tablet Aviane 100 mcg-20 mcg oral tablet 1 tab(s), Oral, Daily Allergies minocycline (Hives, Rash) Social History Alcohol Use: Current. Frequency: 1-2 times per month., 10/26/2022 Nutrition/Health Caffeine intake amount: 1 cup of coffee per day., 10/26/2022 Substance Abuse Use: Never., 10/26/2022 Tobacco Nicotine Use: Never (less than 100 in lifetime)., 10/26/2022 Family History Diabetes: Grandparent. Hypercholesterolemia: Grandparent. Immunizations diphtheria/tetanus/pertussis (DTaP) ped: 0 unknown unit (05/10/05) diphtheria/tetanus/pertussis (DTaP) ped: 0 unknown unit (06/16/03) diphtheria/tetanus/pertussis (DTaP) ped: 0 unknown unit (01) diphtheria/tetanus/pertussis (DTaP) ped: 0 unknown unit (01) diphtheria/tetanus/pertussis (DTaP) ped: 0 unknown unit (01) haemophilus b conjugate (PRP-T) vaccine: 0 unknown unit (06/16/03) haemophilus b conjugate (PRP-T) vaccine: 0 unknown unit (01) haemophilus b conjugate (PRP-T) vaccine: 0 unknown unit (01) haemophilus b-hepatitis B vaccine: 0 unknown unit (01) hepatitis A pediatric vaccine: 0.5 unknown unit (03/24/20) hepatitis B pediatric vaccine: 0 unknown unit (03/12/02) hepatitis B pediatric vaccine: 0 unknown unit (01) Human Papillomavirus Quadval: 0.5 unknown unit (08/14/22) Human Papillomavirus Quadval: 0.5 unknown unit (03/27/22) measles/mumps/rubella virus vaccine: 0 unknown unit (05/10/05) measles/mumps/rubella virus vaccine: 0 unknown unit (05/06/02) meningococcal conjugate vaccine: 0.5 unknown unit (04/08/19) meningococcal conjugate vaccine: 0 unknown unit (03/31/14) meningococcal group B vaccine: 0.5 unknown unit (03/24/20) poliovirus vaccine, inactivated: 0 unknown unit (05/10/05) poliovirus vaccine, inactivated: 0 unknown unit (03/12/02) poliovirus vaccine, inactivated: 0 unknown unit (01) poliovirus vaccine, inactivated: 0 unknown unit (01) SARS-CoV-2 mRNA (tozinameran) vaccine: 0.3 unknown unit (07/24/21) tetanus/diphth/pertuss (Tdap) adult/adol: 0 unknown unit (03/31/14) varicella virus vaccine: 0 unknown unit (05/21/06) varicella virus vaccine: 0 unknown unit (06/16/03) Code Status Code Status - Ordered -- 04/22/23 15:41:00 EDT, Full Code, Constant Order Digitally Signed by BRIGIDA CHI on 04/22/2023 04:13 PM [facility] 04-23-2023 Note Date of Service 04/23/2023 Chief Complaint Throat pain Subjective Patient seen and evaluated this morning while resting in bed. She states that she is feeling much better already. She is having less pain in her throat. She was able to have mashed potatoes last night and is swallowing without any difficulty. Dr. Spivey saw patient last night and did not feel that there is any abscess to drain at this point. He recommended continuing IV antibiotics, steroids and fluids. Patient denies any fever, chills, cough, shortness of breath, chest pain, abdominal pain, nausea or dysuria. Patient would like to go home today but advised it might be shaikh to continue IV antibiotics for another day. Patient agreeable. Mother at bedside and agrees also. All questions answered. Objective Vitals and Measurements T: 36.5 C (Oral) TMIN: 36.4 C (Oral) TMAX: 36.7 C (Oral) HR: 74(Monitored) RR: 16 BP: 95/63 SpO2: 98% HT: 160.0 cm WT: 56.6 kg BMI: 21.76 Intake and Output 7AM Yesterday to 7AM Today Intake and Output (Last 24 hours) Intake Administration Information 1346.67 Oral Intake 500.00 Output Total Summary Total Intake 1846.67 Total Output 0.00 Fluid Balance 1846.67 Physical Exam General: No acute distress. Patient is alert and appropriate. Skin: No rash. Skin is warm, dry and intact. HEENT: Head is normocephalic, atraumatic. Pupils are equal, round and reactive. Neck: Supple. No lymphadenopathy, thyromegaly. Lungs: Bilaterally clear but diminished without crepitation or wheeze. Unlabored. Heart: Heart is regular rhythm, S1, S2. No murmurs, gallops or rubs. Abdomen: Abdomen is soft, nontender. Bowels sounds present in all quadrants. Extremities: No clubbing, cyanosis, or edema. Peripheral pulses palpable. No calf tenderness. Neurological: Patient is awake and alert to person, place and time. Following simple commands, moving all extremities. Weight Current Weight Dosing Weight: 55.7 kg (04/22/23) Current Weight: 56.6 kg (04/23/23) Dosing Weight: 55.7 kg (04/22/23) Medications Medications (12) Active Scheduled: (2) ampicillin-sulbactam 3 gram(s) 8 mL, IV Piggyback, q6hr dexamethasone 4 mg/1 mL solution 4 mg 1 mL, IV Push, QID Continuous: (1) Lactated Ringers 1,000 mL 1,000 mL, Intravenous, 100 mL/hr PRN: (9) acetaminophen 325 mg Tablet 650 mg 2 tab(s), Oral, q4h acetaminophen 325 mg Tablet 650 mg 2 tab(s), Oral, q4h acetaminophen-HYDROcodone 325-5 mg tablet 1 tab(s), Oral, q4h benzonatate 100 mg Capsule 100 mg 1 cap(s), Oral, TID calcium carbonate 500 mg Chewable 500 mg 1 tab(s), Chewed, TID guaifenesin 100 mg/5 mL 120 mL liquid 200 mg 10 mL, Oral, q4h melatonin 3 mg tablet 6 mg 2 tab(s), Oral, qHS morphine 2 mg/mL 1 mL syringe 2 mg 1 mL, IV Push, q3h ondansetron 2 mg/ 1 mL 2 mL INJ 4 mg 2 mL, IV Push, q4h Lab Results 04/23 05:08 WBC: 7.1 Hgb: 12.4 Hct: 36.7 L Platelet: 303 Neutrophil %: 75.3 Glucose Level: 138 H Sodium Level: 139 Potassium Level: 4.8 BUN: 6 L Creatinine Lvl (s): 0.69 04/22 12:51 WBC: 8.7 Hgb: 13.0 Hct: 38.9 Platelet: 277 Neutrophil %: 59.1 Glucose Level: 100 Sodium Level: 139 Potassium Level: 3.8 BUN: 8 Creatinine Lvl (s): 0.73 Assessment/Plan 1. Peritonsillar abscess Acute, new onset *Consult placed to Dr. Spivey, ENT, for recommendation. States no drainable abscess. Recommended continuing current plan of care. *Continue Unasyn 3 grams IV q6 hours. *Continue dexamethasone 4 mg IV q6 hours. *Continue IV and PO pain medication and antiemetics. *Continue diet as tolerated. *Repeat CBC and BMP in the am. 2. IBS (irritable bowel syndrome) Chronic *Not currently on medication for this. *Start Miralax 17 grams PO daily PRN. DVT prophylaxis with SCDs. Code status: Full Code. Labs, diagnostic test and progress notes reviewed as noted in HPI. Plan of care discussed with patient. All questions answered. Patient verbalizes understanding and is agreeable with plan of care. This case was discussed with collaborating physician, Dr. Milton Ty. Time Spent 35 minutes spent reviewing past diagnostic tests, reviewing lab results, vital sign trends, medical history, reviewing medications and ordering home medications, discussing plan of care with nursing, examining patient, collaborating with physician, and documenting in chart. Digitally Signed by BRIGIDA CHI on 04/23/2023 11:03 AM [facility] 04-22-2023 Note Date of Service 04/22/2023 Chief Complaint pt c/o sorethroat, over past week. She has been seen at 2 different stat cares and an ER placed on Amoxicillen. Pt has been tested for strep and mono both negative results. History of Present Illness Patient is a 22-year-old female, who follows with Mis Lincoln CNP with no significant past medical history, presents to [facility] emergency department with the chief complaint of sore throat. Patient states that she developed a sore throat a week ago Saturday. On Saturday last week, she was seen in an urgent care and a strep test was doen. It was negative so she was discharged home with aois-vuy-rrramfs recommendations. She presented again a few days later to the urgent care and was sent to the ED for concern of an abscess. She was given an oral steroid in the ER and then discharged home on amoxicillin. She has had difficulty swallowing the amoxicillin so has been crushing it in order to take it. Patient states she has been drooling a lot and is unable to open her mouth very far. She saw her PCP today who gave her decadron and sent her back to the ED for a CT neck. Patient reports intermittent fever and persistent hoarseness. She denies chills, cough, shortness of breath, chest pain, abdominal pain, nausea or dysuria. In the emergency department, CT soft tissue neck revealed left peritonsillar abscess with localized mass effect as described. No significant narrowing of the airway is present. Mild left-sided retropharyngeal edema. CBC and BMP unremarkable. Patient was administered 4 mg morphine IV, 10 mg dexamethasone IV and 3 grams Unasyn IV in the ED. The case was discussed with RAMAN Joshua, who recommended admission, unasyn and decadron. He will see her this evening on consult. The case was discussed with the ED physician who recommended admission for IV antibiotics and observation. Patient will be transferred to medical surgical unit for further evaluation and treatment. We will continue Unasyn 3 grams IV q6 hours. We will continue dexamethasone 4 mg IV q6 hours. We will consult Dr. Spivey ENT, for further recommendation. We will continue PO and IV pain medication and antiemetics. Repeat CBC and BMP in the am. Review of Systems Review of Systems: Reviewed in detail, including general health, HEENT, cardiovascular, respiratory, gastrointestinal, genitourinary, endocrine, musculoskeletal, neurologic, vascular, skin, and psychiatric. All are negative except for those listed in the History of Present Illness. Physical Exam Vitals and Measurements T: 36.7 C (Oral) HR: 104 RR: 14 BP: 122/85 SpO2: 97% WT: 55.7 kg Weight Dosing Weight: 55.7 kg (08/28/23) General: No acute distress. Patient is alert and appropriate. Skin: No rash. Skin is warm, dry and intact. HEENT: Head is normocephalic, atraumatic. Pupils are equal, round and reactive. Neck: Supple. Lymphadenopathy noted in left neck. Lungs: Bilaterally clear but diminished without crepitation or wheeze. Unlabored. Heart: Heart is regular rhythm, S1, S2. No murmurs, gallops or rubs. Abdomen: Abdomen is soft, nontender. Bowels sounds present in all quadrants. Extremities: No clubbing, cyanosis, or edema. Peripheral pulses palpable. No calf tenderness. Neurological: Patient is awake and alert to person, place and time. Following simple commands, moving all extremities. Lab Results 04/22 12:51 WBC: 8.7 Hgb: 13.0 Hct: 38.9 Platelet: 277 Neutrophil %: 59.1 Glucose Level: 100 Sodium Level: 139 Potassium Level: 3.8 BUN: 8 Creatinine Lvl (s): 0.73 Assessment/Plan 1. Peritonsillar abscess Acute, new onset *Consult placed to Dr. Spivey, ENT, for recommendation. *Continue Unasyn 3 grams IV q6 hours. *Continue dexamethasone 4 mg IV q6 hours. *Continue IV and PO pain medication and antiemetics. *Continue diet as tolerated. *Repeat CBC and BMP in the am. 2. IBS (irritable bowel syndrome) Chronic *Continue current home medications. DVT prophylaxis with SCDs, ambulation. Code status: Full Code. Labs, diagnostic test and progress notes reviewed as noted in HPI. Plan of care discussed with patient. All questions answered. Patient verbalizes understanding and is agreeable with plan of care. This case was discussed with collaborating physician, Dr. Enzo Alamo. 55 minutes spent reviewing past diagnostic tests, reviewing lab results, vital sign trends, medical history, reviewing medications and ordering home medications, examining patient, collaborating with physician, and documenting in chart. Problem List/Past Medical History Ongoing Chronic diarrhea Hyperlipidemia IBS (irritable bowel syndrome) Soft palate edema Tonsillitis Unintentional weight loss Historical No qualifying data Procedure/Surgical History Extraction of wisdom tooth: 2017 Medications Home Medications (2) Active amoxicillin-clavulanate 875 mg-125 mg oral tablet Aviane 100 mcg-20 mcg oral tablet 1 tab(s), Oral, Daily Allergies minocycline (Hives, Rash) Social History Alcohol Use: Current. Frequency: 1-2 times per month., 10/26/2022 Nutrition/Health Caffeine intake amount: 1 cup of coffee per day., 10/26/2022 Substance Abuse Use: Never., 10/26/2022 Tobacco Nicotine Use: Never (less than 100 in lifetime)., 10/26/2022 Family History Diabetes: Grandparent. Hypercholesterolemia: Grandparent. Immunizations diphtheria/tetanus/pertussis (DTaP) ped: 0 unknown unit (05/10/05) diphtheria/tetanus/pertussis (DTaP) ped: 0 unknown unit (06/16/03) diphtheria/tetanus/pertussis (DTaP) ped: 0 unknown unit (01) diphtheria/tetanus/pertussis (DTaP) ped: 0 unknown unit (01) diphtheria/tetanus/pertussis (DTaP) ped: 0 unknown unit (01) haemophilus b conjugate (PRP-T) vaccine: 0 unknown unit (06/16/03) haemophilus b conjugate (PRP-T) vaccine: 0 unknown unit (01) haemophilus b conjugate (PRP-T) vaccine: 0 unknown unit (01) haemophilus b-hepatitis B vaccine: 0 unknown unit (01) hepatitis A pediatric vaccine: 0.5 unknown unit (03/24/20) hepatitis B pediatric vaccine: 0 unknown unit (03/12/02) hepatitis B pediatric vaccine: 0 unknown unit (01) Human Papillomavirus Quadval: 0.5 unknown unit (08/14/22) Human Papillomavirus Quadval: 0.5 unknown unit (03/27/22) measles/mumps/rubella virus vaccine: 0 unknown unit (05/10/05) measles/mumps/rubella virus vaccine: 0 unknown unit (05/06/02) meningococcal conjugate vaccine: 0.5 unknown unit (04/08/19) meningococcal conjugate vaccine: 0 unknown unit (03/31/14) meningococcal group B vaccine: 0.5 unknown unit (03/24/20) poliovirus vaccine, inactivated: 0 unknown unit (05/10/05) poliovirus vaccine, inactivated: 0 unknown unit (03/12/02) poliovirus vaccine, inactivated: 0 unknown unit (01) poliovirus vaccine, inactivated: 0 unknown unit (01) SARS-CoV-2 mRNA (tozinameran) vaccine: 0.3 unknown unit (07/24/21) tetanus/diphth/pertuss (Tdap) adult/adol: 0 unknown unit (03/31/14) varicella virus vaccine: 0 unknown unit (05/21/06) varicella virus vaccine: 0 unknown unit (06/16/03) Code Status Code Status - Ordered -- 04/22/23 15:41:00 EDT, Full Code, Constant Order Digitally Signed by BRIGIDA CHI APRN-AC/DC REWINDER on 04/22/2023 04:13 PM [facility] 1. Peritonsillar abscess Acute, new onset *Consult placed to Dr. Spivey, ENT, for recommendation. *Continue Unasyn 3 grams IV q6 hours. *Continue dexamethasone 4 mg IV q6 hours. *Continue IV and PO pain medication and antiemetics. *Continue diet as tolerated. *Repeat CBC and BMP in the am. 2. IBS (irritable bowel syndrome) Chronic *Continue current home medications. DVT prophylaxis with SCDs, ambulation. Code status: Full Code. Labs, diagnostic test and progress notes reviewed as noted in HPI. Plan of care discussed with patient. All questions answered. Patient verbalizes understanding and is agreeable with plan of care. This case was discussed with collaborating physician, Dr. Enzo Alamo. 55 minutes spent reviewing past diagnostic tests, reviewing lab results, vital sign trends, medical history, reviewing medications and ordering home medications, examining patient, collaborating with physician, and documenting in chart. Addendum by ENZO ALAMO MD on April 23, 2023 18:51:11 EDT Encounter was completed as a tele-consult over the phone. Care was discussed with collaborating [employer]IGH [employer] PRINCIPAL Clinical documentation labs and imaging were reviewed independently Agree with current plan of care Future Scheduled Tests Radiology* CT Soft Tissue Neck w/ Contrast 04/22/23 [facility] 08-28-2023 Note ADDENDUM ADDENDUM: The results of this examination were discussed by this radiologist with Bola Leiva at 3:08 p.m. on 04/22/2023 Interpreted by: Chad Sandoval MD Preliminary Report By: Chad Sandoval MD Electronically signed By Chad Sandoval MD Dictated Date: 04/22/2023 3:08:14 PM Prelim Date: 04/22/2023 3:09:05 PM Sign Date: 04/22/2023 3:09:05 PM Ordering Provider: BOLA LEIVA ORIGINAL EXAMINATION: CT neck with intravenous contrast TECHNIQUE: CT of the neck was performed following the uneventful administration of Omnipaque 300 intravenous contrast. Axial images were obtained through the neck with multiplanar reformats. Low dose CT acquisition technique included one of the following options: 1. Automated exposure control, 2. Adjustment of the MA and/or KV according to patient size, or 3. Use of iterative reconstruction. DICOM images are available. COMPARISON: None. HISTORY: ORDERING SYSTEM PROVIDED HISTORY: Reason for Exam: r/o left MANAGER BUILDING FINDINGS: Soft tissues: A 2.2 x 2.6 x 3.0 cm left peritonsillar abscess effaces the kole pharyngeal airway and displaces it rightward. Mild left-sided retropharyngeal edema in the hypopharynx. Aerodigestive tract: Distorted left fossa of Rosenmuller secondary to the above described low peritonsillar abscess. Mild mucosal thickening within the left fossa of Rosenmueller is noted. Mild narrowing of the oropharyngeal airway and rightward displacement as described. Enlarged lingual tonsils contacting the left and right epiglottic free edges and. The larynx and upper trachea are unremarkable. Salivary glands: Unremarkable. Thyroid: Unremarkable. Lymph nodes : Widespread subcentimeter (short axis, axial plane) cervical lymphadenopathy likely reactive. Vessels: Unremarkable. Bones: No acute osseous pathology. Mild reversal of the normal cervical lordosis which may be positional, secondary to pain, musculoskeletal spasm, or the patient's underlying clinical condition. Visualized lung apices: Clear. Visualized brain parenchyma: No acute pathology. Additional comment: None. IMPRESSION: Left peritonsillar abscess with localized mass effect as described. No significant narrowing of the airway is present. Mild left-sided retropharyngeal edema. Other noncontributory findings as described. Communication to the radiology call center was initiated by this radiologist at 2:58 p.m. on 04/22/2023with instructions to have the ordering physician immediately call this radiologist. Once I have discussed this case with the physician an addendum will be generated. Interpreted by: Chad Sandoval MD Preliminary Report By: Chad Sandoval MD Electronically signed By Chad Sandoval MD Dictated Date: 04/22/2023 2:57:05 PM Prelim Date: 04/22/2023 3:03:11 PM Sign Date: 04/22/2023 3:03:11 PM Ordering Provider: BOLA [facility]03-04-2023 Evaluation + Plan note Diagnostic Tests Pending * TGT Ab (IGA) 10/27/22 * Gliadin Antibody 10/27/22 [facility] Hospital course Narrative No data available for this section [facility] Hospital Discharge instructions No data available for this section [facility] Instructions* Name Dates Details Patient Instructions Indication:BMI 24.0-24.9, adult Start:07-Apr-2021 Instruction Type:Provider Instructions for Treatment How to Access Health Informa tion Online using Patient Portal and 3rd [employer] Apps Indication:BMI 24.0-24.9, adult Start:07-Apr-2021 Instruction Type:Patient Education Patient Instructions Indication:Non-smoker Start:31-Mar-2021 Instruction Type:Provider Instructions for Treatment How to Access Health Informa tion Online using Patient Portal and 3rd [employer] Apps Indication:Non-smoker Start:31-Mar-2021 Instruction Type:Patient Education [facility] Work Phone: [email or web address]* Name Dates Details Patient Instructions Indication:Non-smoker Start:05-Apr-2022 Instruction Type:Provider Instructions for Treatment How to Access Health Informa tion Online using Patient Portal and 3rd [employer] Apps Indication:Non-smoker Start:05-Apr-2022 Instruction Type:Patient Education Patient Instructions Indication:BMI 24.0-24.9, adult Start:07-Apr-2021 Instruction Type:Provider Instructions for Treatment How to Access Health Informa tion Online using Patient Portal and 3rd [employer] Apps Indication:BMI 24.0-24.9, adult Start:07-Apr-2021 Instruction Type:Patient Education Patient Instructions Indication:Non-smoker Start:31-Mar-2021 Instruction Type:Provider Instructions for Treatment How to Access Health Informa tion Online using Patient Portal and 3rd [employer] Apps Indication:Non-smoker Start:31-Mar-2021 Instruction Type:Patient Education [facility]; [facility] Work Phone: instructions* Name Dates Details Patient Instructions Indication:Non-smoker Start:05-Apr-2022 Instruction Type:Provider Instructions for Treatment How to Access Health Informa tion Online using Patient Portal and 3rd [employer] Apps Indication:Non-smoker Start:05-Apr-2022 Instruction Type:Patient Education Patient Instructions Indication:BMI 24.0-24.9, adult Start:07-Apr-2021 Instruction Type:Provider Instructions for Treatment How to Access Health Informa tion Online using Patient Portal and 3rd [employer] Apps Indication:BMI 24.0-24.9, adult Start:07-Apr-2021 Instruction Type:Patient Education Patient Instructions Indication:Non-smoker Start:31-Mar-2021 Instruction Type:Provider Instructions for Treatment How to Access Health Informa tion Online using Patient Portal and [employer] Apps Indication:Non-smoker Start:31-Mar-2021 Instruction Type:Patient Education [facility]; [facility] Work Phone: [email or web address]* Name Dates Details Patient Instructions Indication:Non-smoker Start:05-Apr-2022 Instruction Type:Provider Instructions for Treatment How to Access Health Informa tion Online using Patient Portal and [employer] Apps Indication:Non-smoker Start:05-Apr-2022 Instruction Type:Patient Education Patient Instructions Indication:BMI 24.0-24.9, adult Start:07-Apr-2021 Instruction Type:Provider Instructions for Treatment How to Access Health Informa tion Online using Patient Portal and 3rd [employer] Apps Indication:BMI 24.0-24.9, adult Start:07-Apr-2021 Instruction Type:Patient Education Patient Instructions Indication:Non-smoker Start:31-Mar-2021 Instruction Type:Provider Instructions for Treatment How to Access Health Informa tion Online using Patient Portal and 3rd [employer] Apps Indication:Non-smoker Start:31-Mar-2021 Instruction Type:Patient Education [facility]; [facility] Work Phone: instructions* Instruction Text Please go to the ER [place] as you need some imaging and likely IV antibiotics. This is extremely important to seek treatment [place] to prevent further swelling and distress. [facility] Progress note No data available for this section [facility] Summary Purpose Family History No Family History Records FoundNo Family History Records Found No data available for this section No Family History Records Found Advance Directives No Advanced Directives Records FoundNo Advanced Directives Records FoundNo Advanced Directives Records Found Additional Source Comments INFORMATION SOURCE (unrecogn ized section and content) DATE CREATED AUTHOR AUTHOR'S ORGANIZ ATION 04/20/2023 [facility] DATE CREATED AUTHOR AUTHOR'S ORGANIZ ATION 06/05/2023 [facility] [place] ([place] Care Team (unrecognized sect ion and content) Care Team Personnel Name: MIS LINCOLN Position: P4 Advanced Design Analyst Member Role: Primary Care Physician Address: Address: [address] [place] [address] [place], [place] [address] Care Team Related Persons Name: PINO KIM Address: Home [address] [place], [place] [id number] Address: Temporary [address] [place], [id number] Name: KAMAR KIM Reason for Visit (unrecogniz ed section and content) Pt presents with a sore throat that began a week ago. Pt states she was tested for strep on Saturday and it was negative but since has become significantly worse. - MARSHALL RN Pt presents with a sore throat that began a week ago. Pt states she was tested for strep on Saturday and it was negative but since has become significantly worse. - MARSHALL RN Pt presents with a sore throat that began a week ago. Pt states she was tested for strep on Saturday and it was negative but since has become significantly worse. - MARSHALL RN <item> Privacy Markings (unrecogniz ed section and content) Section Author: Carey Sosa PROHIBITION ON REDISCLOSURE OF CONFIDENTIAL INFORMATION This notice accompanies a disclosure of information concerning a client made to you with the consent of such client. Patient Care team informatio n (unrecognized section and content) Care Team Personnel Name: MIS LINCOLN HIGH [employer]CHO[employer] PRINCIPAL-AC/DC REWINDER Position: Advanced Design Analyst Member Role: Primary Care Physician Address: Address: [address] [facility] Phys[facility] [place], [place] [address] Name: BOLA LEIVA DO Position: ED Physician Member Role: ED Physician Address: Address: [address] [place] [id number] Name: Kaylie Crooks RN Position: ED RN Member Role: ED RN Care Team Related Persons Name: PINO KIM Address: Home [address] [place], [place] [id number] Address: Temporary [address] [place], [place] [id number] Name: KAMAR KIM FOR RECORDS PERTAINING TO PATIENTS WHO ARE OR HAVE BEEN ENROLLED IN A CHEMICAL DEPENDENCY/SUBSTANCEABUSE PROGRAM, SOME INFORMATION MAY BE OMITTED. This clinical summary was aggregated from multiple sources. Caution should be exercised in using it in the provision of clinical care. This summary normalizes information from multiple sources, and as a consequence, information in this document may materially change the coding, format and clinical context of patient data. In addition, data may be omitted in some cases. CLINICAL DECISIONS SHOULD BE BASED ON THE PRIMARY CLINICAL RECORDS. [facility] [employer] provides no warranty or guarantee of the accuracy or completeness of information in this document.
== END | disposition home or self-care (01) ==
LOC: LABSPEC 15:22
PROVIDERS: PCP Nurse Practitioner Primary Care; Visit Provider Otolaryngology
DX: J35.01 Chronic tonsillitis (principal)
CPT/HCPCS: 88304